=== PATIENT | female | born 1955 | race Caucasian/White ===

== ENCOUNTER → 2025-06-12 13:23 | Outpatient (REF) | payer MEDICARE, OTHER, SELFPAY | LOC: SDSPAT 13:23 | PROVIDERS: ATTENDING PHYSICIAN Surgery; FAMILY PHYSICIAN Family Medicine | DX: K80.20 Calculus of gallbladder without cholecystitis without obstruction (principal) | CPT/HCPCS: 93005 ==

== ENCOUNTER 2025-06-23 06:07 | Day surgery (SDC) | payer MEDICARE, OTHER, SELFPAY ==
[2025-06-12 14:16] VITALS: BMI 18.2
[2025-06-23] VITALS (12 sets, daily range): BP systolic 126–155; BP diastolic 62–98; BMI 18.2
[2025-06-23] MEDS: NORMOSOL-R/PLASMALYTE-A 1000 IV (07:20)
[2025-06-23] MEDS: TYLENOL 1000 MG PO (07:24)
[2025-06-23] MEDS: ZOFRAN 4 MG IV (09:56)
== END 2025-06-23 12:53 | disposition home or self-care (01) ==
LOC: SDS 06:07
PROVIDERS: ATTENDING PHYSICIAN Surgery
DX: K80.10 Calculus of gallbladder with chronic cholecystitis without obstruction (principal); K82.8 Other specified diseases of gallbladder; K66.0 Peritoneal adhesions (postprocedural) (postinfection); Z85.841 Personal history of malignant neoplasm of brain; Z98.890 Other specified postprocedural states
CPT/HCPCS: 47563; 74300; 76000; 88304; A4300